=== PATIENT | female | born 1975 | race Caucasian/White ===

== ENCOUNTER 2024-02-11 21:57 | Emergency (ER) | payer BC, OTHER ==
[2024-02-11 22:25] VITALS: TEMP 98.6; O2SAT 99
[2024-02-11] MEDS ORDERED: PERCOCET TABLET 5/325MG ONE (22:53)
[2024-02-11] MEDS: PERCOCET TABLET 5/325MG PO STA (22:56)
--- NOTE | 2024-02-11 23:15 | ERPHSYRPT ---
- History of Present Illness Time Seen by Provider: 02/11/24 22:15 Source: patient Exam Limitations: no limitations Patient Subjective Stated Complaint: R lower leg redness, pt went to [facility] on february 01 and got diagnosed with cellulitis and was prescribed clindamycin which patient is still currently taking, pt states her leg has no improved. Triage Nursing Assessment: pt ambulatoy to bed by self, pt alert and oriented x3, pt presents with R lower leg reddness and pain, pt states she fell at work 4 weeks ago and states the redness has been there ever since. 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 There is been redness and swelling in the subcutaneous layer ever since. On 02/02/2024, tegan escamilla was seen at [facility] emergency department because of the persistence of this swelling and redness and was placed on clindamycin to treat what they felt was a cellulitis. Almost 2 weeks later the area is still present and she is concerned that something else is going on. She did have a plain x-ray performed at the time of injury, and there was no evidence of any bony fracture. Patient has not had any fevers. Patient states that the pain level is approximately 5 out of 10 and it is a constant ache that is localized in that area. Patient has a history of hypothyroidism, hypertension and diabetes. Method of Injury: direct blow Occurred: other (Actually 1 month ago) Quality: constant, aching Severity of Pain-Max: mild (To moderate) Severity of Pain-Current: mild (To moderate) Lower Extremities Pain: leg: right (approximately distal third anterior tibia) Modifying Factors: Improves With: movement Associated Symptoms: none Allergies/Adverse Reactions: No Known Drug Allergies Allergy (Verified 02/11/24 22:10) Home Medications: Levothyroxine Sodium 100 Mcg [Synthroid 100 Mcg] 100 mcg PO DAILY 02/11/24 [History] Lisinopril 20 mg [Zestril 20 MG] 20 mg PO DAILY 02/11/24 [History] Meloxicam 15 mg [Meloxicam 15 MG] 15 mg PO DAILY 02/11/24 [History] Metformin HCl 500 mg [Glucophage 500 MG] 500 mg PO BID 02/11/24 [History] Multivitamin/Iron/Folic Acid [One Daily Plus Iron Tablet] 1 tab PO HS 02/11/24 [History] clindamycin HCL [Clindamycin HCl] 300 mg PO UD 02/11/24 [History] Hx Tetanus, Diphtheria Vaccination/Date Given: No Hx Influenza Vaccination/Date Given: Yes Hx Pneumococcal Vaccination/Date Given: No Immunizations Up to Date: No Travel Risk - International Travel Have you traveled outside of the country in past 3 weeks: No - Emerging Infectious Disease Are you exhibiting symptoms associated with any current EIDs: No - Review of Systems Constitutional: No Symptoms Eyes: No Symptoms Ears, Nose, & Throat: No Symptoms Respiratory: No Symptoms Cardiac: No Symptoms Abdominal/Gastrointestinal: No Symptoms Genitourinary Symptoms: No Symptoms Musculoskeletal: Injury (Distal third anterior tibia on the right side) Skin: Other (Skin, faint redness and swelling overlying distal third of the tibia on the right) Neurological: No Symptoms Psychological: No Symptoms Endocrine: No Symptoms Hematologic/Lymphatic: No Symptoms Immunological/Allergic: No Symptoms All Other Systems: Reviewed and Negative - Past Medical History Pertinent Past Medical History: Yes Neurological History: Migraines ENT History: No Pertinent History Cardiac History: Hypertension Respiratory History: No Pertinent History Endocrine Medical History: Diabetes Type II, Hypothyroidism Musculoskeletal History: Arthritis, Fractures GI Medical History: No Pertinent History History: No Pertinent History Psycho-Social History: No Pertinent History Female Reproductive Disorders: No Pertinent History - Past Surgical History Past Surgical History: Yes Neuro Surgical History: No Pertinent History Cardiac: No Pertinent History Respiratory: No Pertinent History Gastrointestinal: Cholecystectomy Genitourinary: No Pertinent History Musculoskeletal: No Pertinent History Female Surgical History: Hysterectomy, Section Other Surgical History: gastric bypass - Female History Hx Last Menstrual Period: hysterectomy - Social History Smoking Status: Never smoker Exposure to second hand smoke: No Drug Use: none - Social Determinants of Health Will the patient participate in the screening: Yes Do you worry about a steady place to live?: No Do you have any problems with any of the following?: No known problems In the past 12 months,have you had to go without utilities?: No Transportation Issues: No Has anyone in your support network made you feel unsafe?: No Have you or anyone in your house had to go without enough: No - Nursing Vital Signs Nursing Vital Signs: Initial Vital Signs Temperature 98.6 F 02/11/24 22:11 Pulse Rate 105 H 02/11/24 22:11 Respiratory Rate 18 02/11/24 22:11 Blood Pressure 182/83 02/11/24 22:11 O2 Sat by Pulse Oximetry 99 02/11/24 22:11 Pain Scale Pain Intensity 5 - Physical Exam General Appearance: no apparent distress, alert, anxiety, obese Eyes, Ears, Nose, Throat Exam: normal ENT inspection, moist mucous membranes Neck Exam: normal inspection, non-tender, supple, full range of motion Cardiovascular/Respiratory Exam: chest non-tender, no respiratory distress Gastrointestinal/Abdominal Exam: non-tender Back Exam: normal inspection, normal range of motion, No CVA tenderness, No vertebral tenderness SpO2: 99 Ordered Tests: Active Orders 24 hr Category Date Time Status LOWER EXTREMITY WO CONTRAST [CT] Stat Exams 02/11/24 22:23 Completed Medication Summary Discontinued Medications Generic Name Dose Route Start Last Admin Trade Name Ro PRN Reason Stop Dose Admin Oxycodone/Acetaminophen 2 tab 02/11/24 22:45 02/11/24 22:56 Oxycodone Hcl/Apap 5 Mg/325 Mg Tablet PO 02/11/24 22:46 2 tab SENT HOME W/ PATIENT STA Administration Oxycodone/Acetaminophen Confirm 02/11/24 22:53 Oxycodone Hcl/Apap 5 Mg/325 Mg Tablet Administered 02/11/24 22:54 Dose 2 tab .ROUTE .STK-MED ONE - Progress Progress: unchanged, pain not gone completely, re-examined Progress Note: 02/11/24 23:57 My medical decision making and the assignment of low complexity to this patient's medical issue today is based on review of the patient's past medical history, review patient medication list, review of the patient's drug allergy list, history present illness and physical findings on examination. The workup in this patient includes CT scan of the right lower extremity (tibia/fibula). CT scan of the right lower extremity was interpreted by the radiologist. The impression states no fracture. There is mild ankle effusion. Mild subcutaneous edema. Counseled pt/family regarding: diagnosis, need for follow-up, rad results Medical Desision Making - Diagnostic Testing Diagnostic test were ordered, analyzed, and reviewed by me: Yes Radiological Interpretation: Reviewed by me, Teleradiologist Report - Risk of complications Low Risk: Low risk of morbidity from additional dx testing or treatment - Departure Departure Disposition: Home Clinical Impression: Pain of right tibia Condition: Stable Critical Care Time: No Referrals: [facility]ILA[facility] [Primary Care Provider] - Follow up/PCP as directed Additional Instructions: Continue your antibiotics as prescribed. Use the take-home medication as prescribed. Once those medications are gone, use Tylenol and ibuprofen for pain control. May alternate ice and warm compresses/medium setting heating pad 3 times a day but not directly on skin. Call your primary care provider tomorrow, 02/12/2024, to make arrangements for further evaluation management and to be evaluated in the next 5 to 7 days.
[2024-02-11 23:20] VITALS: RESP 17
--- NOTE | 2024-02-11 23:54 | XRAY ---
CLINICAL HISTORY: Fall; mid tibial tenderness anterio COMPARISON: None. TECHNIQUE: CT was performed of the lower extremity without IV contrast. One of the following dose-reduction techniques was utilized for this exam. Automated exposure control, adjustment of the mA and/or kV according to patient size, and use of iterative reconstruction. FINDINGS: Mild subcutaneous edema was noted at the level of the ankle joint. There is no fracture. The visualized bones appear normal in density. The joint spaces are normal. The tibiofemoral and superior tibiofibular joint spaces are normal. No dislocation or subluxation is seen at the ankle joint. No evidence of lytic or sclerotic bone lesions. Mild ankle joint effusion. IMPRESSION: 1. Mild subcutaneous edema at the level of the ankle joint. 2. Mild ankle joint effusion. Electronically Signed by: Clarence Trammell MD. (02/11/2024 23:50:22 EDT)
[2024-02-12 00:04] VITALS: BP 159/81; PULSE 76
== END 2024-02-12 00:13 | disposition home or self-care (01) ==
LOC: ED 21:57
DX: M79.661 Pain in right lower leg (principal); I10 Essential (primary) hypertension; E11.9 Type 2 diabetes mellitus without complications; Z79.84 Long term (current) use of oral hypoglycemic drugs; Z79.899 Other long term (current) drug therapy
CPT/HCPCS: 73700; 99283; A9270-GY